=== PATIENT | male | born 1975 | race Caucasian/White ===

== ENCOUNTER 2019-07-01 16:32 | Emergency (ER) | payer OTHER ==
[2019-07-01 16:56] VITALS: O2SAT 99
--- NOTE | 2019-07-01 18:33 | ED.PDOC ---
History of Present Illness - General Chief Complaint: Problem Time Seen by Provider: 07/01/19 17:28 - History of Present Illness Initial Comments: 43yo M who presents with urinary pain and frequency. The patient reports 1 week ago he had generalized abdominal discomfort with bloating and diarrhea. Symptoms improved, but today he noted worsening urinary discomfort. "I can only pee a little bit and then I have to go again." The patient reports no flank pain or fever. He has hx of renal stones in the past, but has not had any similar pain. He denies past hx of UTIs. No concern of STDs. No other reported issues. Home Medications: Ambulatory Orders Ciprofloxacin 500 mg PO BID #14 ml 07/01/19 Review of Systems - Review of Systems Constitutional: Denies: chills, fever EENTM: States: no symptoms reported Respiratory: Denies: cough, short of breath Cardiology: Denies: chest pain, palpitations Gastrointestinal/Abdominal: States: diarrhea, nausea. Denies: abdominal pain Genitourinary: States: dysuria, frequency, hematuria, pain Musculoskeletal: Denies: joint pain, joint swelling Skin: Denies: change in color, rash Neurological: Denies: headache, numbness, weakness Family Medical History - Family History Father Living Status: Unknown Physical Exam - Physical Exam General Appearance: Alert, No apparent distress Neck: non-tender, full range of motion, supple Cardiovascular/Respiratory: regular rate, rhythm, normal peripheral pulses Gastrointestinal/Abdominal: non tender, soft, other - Minimal suprapubic discomfort, no distention, no CVAT Back Exam: no CVA tenderness Extremity: normal range of motion, non-tender Neurologic: no motor/sensory deficits, alert, normal mood/affect, oriented x 3 Skin Exam: normal color, warm/dry Progress - Progress Progress: 07/01/19 18:43 The patient has a non-tender abdomen at this time, no CVAT. He is in no distress. UA is suggestive of UTI. It is possible this is associated with his recent GI illness that is presently resolved. We discussed STD. He has low suspicion and we have opted to defer testing. He is afebrile and well appearing. Rocephin given in the ED. I recommended PCP follow up for ongoing evaluation. Results discussed. The patient understands the pathways and importance of follow up. Return warnings discussed. - Results/Orders Results/Orders: 07/01/19 17:34 Urine Culture Stat 07/01/19 18:34 [email or web address] SODIUM [Rocephin] 1 gm Sodium Chl 0.9% 50Ml Min-Bag+ [NS 50ml MINI-BAG+] 50 ml IVPB ONCE Laboratory Results - last 24 hr 07/01/19 07/01/19 07/01/19 17:34 17:53 17:53 WBC 8.2 RBC 5.98 Hgb 17.4 Hct 49.7 MCV 83.0 MCH 29.1 MCHC 35.1 RDW 13.5 Plt Count 139 MPV 8.3 Absolute Neuts (auto) 6.60 Absolute Lymphs (auto) 1.10 Absolute Monos (auto) 0.40 Absolute Eos (auto) 0.00 Absolute Basos (auto) 0.10 Neutrophils % 80.5 H Lymphocytes % 13.2 L Monocytes % 5.3 Eosinophils % 0.3 L Basophils % 0.7 Sodium 140 Potassium 3.5 L Chloride 108 Carbon Dioxide 22 Anion Gap 13.5 BUN 15 Creatinine 0.88 BUN/Creatinine Ratio 17.0 Random Glucose 125 H Serum Osmolality 281.7 Calcium 8.8 Total Bilirubin 1.2 H AST 45 H ALT 81 H Alkaline Phosphatase 100 Serum Total Protein 8.0 Albumin 4.5 Globulin 3.5 Albumin/Globulin Ratio 1.3 Urine Color Dk yellow Urine Appearance Cloudy Urine pH 5.5 Ur Specific [place] >= 1.030 Urine Protein 100 H Urine Glucose (UA) Negative Urine Ketones 15 H Urine Blood Large H Urine Nitrite Positive H Urine Bilirubin Small H Urine Urobilinogen 1.0 Ur Leukocyte Esterase Small H Urine RBC 40-50 H Urine WBC >50 H Ur Epithelial Cells 0 Ur Renal Epithelial Cell 1-3 Urine Bacteria 1+ Urine Yeast 1+ budding Departure - Departure Clinical Impression: Urinary tract infection Qualifiers: Urinary tract infection type: site unspecified Hematuria presence: with hematuria Qualified Code(s): N39.0 - Urinary tract infection, site not specified Disposition: Discharge to Home or Self Care Condition: Good Departure Forms: ED Discharge - Pt. Copy, Patient Portal Self Enrollment Instructions: DI for Urinary Tract Infection (UTI) Referrals: UNKNOWN,PHYSICIAN [Primary Care Provider] - 1-2 Weeks Prescriptions: Ciprofloxacin 500 mg PO BID #14 ml Home Medications: Ambulatory Orders Ciprofloxacin 500 mg PO BID #14 ml 07/01/19
[2019-07-01] MEDS ORDERED: cefTRIAXone SODIUM 1 GM in SODIUM CHL 0.9% 50ML MIN-BAG+ 50 ML IVPB ONE (18:34)
[2019-07-01] MEDS ORDERED: cefTRIAXone SODIUM 1 GM VIAL ONE (18:40)
[2019-07-01] MEDS ORDERED: SODIUM CHL 0.9% 50ML MIN-BAG+ 50 ML IVPB ONE ×2 (18:41→18:43)
[2019-07-01 19:39] VITALS: BP 135/80; TEMP 98.2
== END 2019-07-01 19:25 | disposition home or self-care (01) ==
LOC: ER 16:32
DX: N39.0 Urinary tract infection, site not specified (principal); Z87.442 Personal history of urinary calculi
CPT/HCPCS: 36415; 80053; 81001; 85025; 87086; J0696; J7050